=== PATIENT | male | born 1965 | race Caucasian/White ===

== ENCOUNTER 2016-11-24 20:04 | Emergency (ER) | payer OTHER ==
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
[2016-11-24 20:55] VITALS: BP 141/103
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
== END 2016-11-24 21:10 | disposition home or self-care (01) ==
LOC: FB.ED 20:04
DX: S63.501A Unspecified sprain of right wrist, initial encounter (principal); F17.210 Nicotine dependence, cigarettes, uncomplicated; W51.XXXA Accidental striking against or bumped into by another person, initial encounter; Z79.82 Long term (current) use of aspirin; Y92.89 Other specified places as the place of occurrence of the external cause
CPT/HCPCS: 73110-RT; 99283

== ENCOUNTER 2022-06-23 07:02 | Day surgery (SDC) | payer BC ==
[~2022-06-23 07:02] MED LIST: Lactated Ringers 1,000 ML IV SCH; Sodium Chloride 0.9% 10 ML Syringe FLUSH PRN
[2022-06-23] MEDS ORDERED: Propofol 200 MG/20 ML SDV IV ONE (07:03)
[2022-06-23] MEDS ORDERED: Lidocaine 2% 5 ML SDV INJECT ONE (07:03)
[2022-06-23] MEDS ORDERED: Simethicone Drops 40 MG/0.6 ML 30 ML Bottle PO ONE (07:56)
[2022-06-23 10:37] VITALS: BP 137/89; PULSE 70
== END 2022-06-23 09:35 | disposition home or self-care (01) ==
LOC: FB.SDS 07:02
PROVIDERS: ATTEND Surgery
DX: D12.6 Benign neoplasm of colon, unspecified (principal); K57.30 Diverticulosis of large intestine without perforation or abscess without bleeding; F41.9 Anxiety disorder, unspecified; F32.A Depression, unspecified; E78.5 Hyperlipidemia, unspecified; E03.9 Hypothyroidism, unspecified; I10 Essential (primary) hypertension; F17.210 Nicotine dependence, cigarettes, uncomplicated; Z79.899 Other long term (current) drug therapy
CPT/HCPCS: 00811; 88305; A9270-GY; J2704; J7120

== ENCOUNTER 2022-08-31 13:16 | Emergency (ER) | payer BC, MEDICAID ==
[2022-08-31 13:50] VITALS: PULSE 78
[2022-08-31] MEDS ORDERED: Ketorolac 30 MG/ML SDV IM ONE (14:14)
[2022-08-31 19:44] VITALS: BP 143/88
== END 2022-08-31 14:37 | disposition home or self-care (01) ==
LOC: FB.ED 13:16
DX: G89.29 Other chronic pain (principal); M54.50 Low back pain, unspecified; I10 Essential (primary) hypertension; Z79.82 Long term (current) use of aspirin; Z79.899 Other long term (current) drug therapy
CPT/HCPCS: 96372; 99283; J1885

== ENCOUNTER 2023-03-16 17:29 | Emergency (ER) | payer MEDICAID ==
[2023-03-16] MEDS ORDERED: traMADol 50 MG Tab PO ONE ×2 (17:30→18:35)
[2023-03-16] MEDS ORDERED: Ketorolac 30 MG/ML SDV IM ONE (18:00)
[2023-03-16] MEDS ORDERED: Cyclobenzaprine 10 MG Tab PO ONE (18:01)
[2023-03-16 18:54] VITALS: BP 149/83; PULSE 65
== END 2023-03-16 19:03 | disposition home or self-care (01) ==
LOC: FB.ED 17:29
DX: M51.36 Other intervertebral disc degeneration, lumbar region (principal); E78.00 Pure hypercholesterolemia, unspecified; I10 Essential (primary) hypertension; F17.210 Nicotine dependence, cigarettes, uncomplicated; E66.9 Obesity, unspecified; Z68.33 Body mass index [BMI] 33.0-33.9, adult; Z79.82 Long term (current) use of aspirin; Z79.899 Other long term (current) drug therapy
CPT/HCPCS: 96372; 99283; A9270; J1885

== ENCOUNTER 2024-05-07 13:29 | Emergency (ER) | payer MEDICAID ==
[2024-05-07 14:12] LABS: HEMATOCRIT 44.3 % (38.3-50.1); HEMOGLOBIN 15.3 g/dL (12.9-17.7); MEAN CORPUSCULAR HEMOGLOBIN 30.6 pg (27.0-33.3); MEAN CORPUSCULAR HGB CONC 34.4 g/dL (28.7-35.3); MEAN CORPUSCULAR VOLUME 88.8 fL (80.8-98.7); MEAN PLATELET VOLUME 9.1 fL (6.7-11.0); PLATELET COUNT,PLT 246 x10(3)uL (117-477); RED BLOOD CELL COUNT 4.99 x10(6)uL (3.90-5.90); RED CELL DISTRIBUTION WIDTH 14.5 % (12.4-15.0); WHITE BLOOD CELL COUNT,WBC 14.2 x10-3/uL (3.2-10.1)
[2024-05-07 14:24] LABS: EOSINOPHILS PERCENT MAN 1 % (0-5); LYMPHOCYTES PERCENT MAN 16 % (13-37); MONOCYTES PERCENT MAN 10 % (4-12); SEG NEUTROPHILS PERCENT MAN 73 % (46-82)
[2024-05-07 14:28] LABS: ALANINE AMINOTRANSFERASE,ALT 25 U/L (12-36); ALBUMIN 3.7 g/dL (3.5-5.2); ALKALINE PHOSPHATASE 81 IU/L (56-112); ASPARTATE AMNIOTRANSFERASE,AST 22 IU/L (5-25); BILIRUBIN TOTAL 0.7 mg/dL (0.1-1.3); BLOOD UREA NITROGEN,BUN 17 mg/dL (7-18); BUN/CREATININE RATIO 18.9 (9-20); CALCIUM 9.1 mg/dL (8.6-10.2); CARBON DIOXIDE,CO2 25 mmol/L (21-32); CHLORIDE,CL 101 mmol/L (100-110); CREATININE 0.9 mg/dL (0.70-1.30); EST CRCL DRUG DOSING (CG) 88.38 mL/min; ESTIMATED GFR 98 mL/min (>60); GLUCOSE RANDOM 93 mg/dL (80-116); POTASSIUM,K 3.9 mmol/L (3.5-5.3); PROTEIN TOTAL,TP 7.6 g/dL (6.0-8.0); SODIUM,NA 136 mmol/L (135-145)
[2024-05-07] MEDS: Iopamidol 755 Mg/ML 100 ML Bottle IV SCH (14:49)
[2024-05-07] MEDS ORDERED: cefTRIAXone 1 GM in Sodium Chloride 0.9% 50 ML IV ONE (15:39)
[2024-05-07] MEDS: cefTRIAXone 1 GM Vial IVPUSH ONE (15:52)
[2024-05-07] MEDS: Oxymetazoline 0.05% Nasal Spray 30 ML Bottle NAS ONE (15:52)
[2024-05-07] MEDS: methylPREDNISolone Sodium Succinate 125 MG/2 ML SDV IVPUSH ONE (15:55)
[2024-05-07 16:10] VITALS: BP 146/86; PULSE 74
[2024-05-08 15:32] LABS: PROCALCITONIN 0.19 ng/mL
== END 2024-05-07 16:28 | disposition home or self-care (01) ==
LOC: FB.ED 13:29
DX: H60.11 Cellulitis of right external ear (principal); I10 Essential (primary) hypertension; E78.00 Pure hypercholesterolemia, unspecified; F17.210 Nicotine dependence, cigarettes, uncomplicated; Z79.899 Other long term (current) drug therapy; Z79.82 Long term (current) use of aspirin
CPT/HCPCS: 36415; 70491; 80053; 83605; 84145; 85025; 86140; 87040; 96374; 96375; 99284; A9270; J0696; J2919; Q9967